=== PATIENT | female | born 1990 | race Caucasian/White ===

== ENCOUNTER 2020-07-03 19:21 | Emergency (ER) | payer OTHER ==
[2020-07-03] MEDS ORDERED: NORMAL SALINE 1000 ML 1,000 ML IV ONE (20:06)
[2020-07-03] MEDS ORDERED: KETOROLAC TROMETHAMINE INJ/PF 30 MG/1 ML SDV IV ONE (20:06)
--- NOTE | 2020-07-03 20:07 | ER Document Report ---
ED Medical Screen (RME) - General Chief Complaint: Flank Pain Stated Complaint: FLANK PAIN Time Seen by Provider: 07/03/20 20:00 Primary Care Provider: TRISTIN,EMPLOYEE [Primary Care Provider] - Follow up as needed - [facility] Notes: 07/03/20 20:13 30-year-old female to the emergency department with complaints of right upper quadrant abdominal pain with associated nausea that began several days ago and has gotten progressively worse. 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 She states that she does notice that her pain gets worse after she eats. She states that she is not had any fevers or chills. She is never had a gallbladder issue in the past. She states that she was seen in urgent care yesterday. She had negative test then. She states that she was told to follow-up outpatient with a GI specialist. She is recently moved to the area so she does not have a primary care established. She states that when she was feeling really badly today at work her boss requested that she come to the emergency department for further evaluation. On medical screening exam she does have right upper quadrant abdominal pain. I performed a brief medical screening exam on the patient determined that the patient needs further evaluation and management by main side provider. I have placed initial orders to help expedite care. - Related Data Allergies/Adverse Reactions: amoxicillin [Amoxicillin] Allergy (Verified 11/25/11 10:33) cefprozil [From Cefzil] Allergy (Verified 11/25/11 10:33) erythromycin base [Erythromycin Base] Allergy (Verified 11/25/11 10:33) Penicillins Allergy (Verified 11/25/11 10:33) Past Medical History Past Surgical History: Reports: Hx Orthopedic Surgery - ankle - Immunizations Hx Diphtheria, Pertussis, Tetanus Vaccination: Yes Physical Exam - Vital signs Vitals: Temp Pulse Resp BP Pulse Ox 97.9 F 78 16 134/69 H 100 07/03/20 19:30 07/03/20 19:30 07/03/20 19:30 07/03/20 19:30 07/03/20 19:30 Course - Vital Signs Vital signs: Temp Pulse Resp BP Pulse Ox 97.9 F 78 16 134/69 H 100 07/03/20 19:30 07/03/20 19:30 07/03/20 19:30 07/03/20 19:30 07/03/20 19:30 Doctor's Discharge - Discharge Referrals: HEALTH,EMPLOYEE [Primary Care Provider] - Follow up as needed
[2020-07-03] MEDS ORDERED: ONDANSETRON HCL INJ/PF 4 MG/2 ML SDV IV ONE (20:10)
--- NOTE | 2020-07-03 20:29 | ER Document Report ---
ED GI/ - General Chief Complaint: Flank Pain Stated Complaint: FLANK PAIN Time Seen by Provider: 07/03/20 20:00 Primary Care Provider: TRISTINEMPLOYEE [ACTIVE STAFF] - Follow up as needed Mode of Arrival: Ambulatory Information source: Patient Notes: ED Medical Screen ([facility] notes) - General Chief Complaint: Flank Pain Stated Complaint: FLANK PAIN Time Seen by Provider: 07/03/20 20:00 Primary Care Provider: HEALTHEMPLOYEE [Primary Care Provider] - Follow up as needed - HPI Notes: 07/03/20 20:13 30-year-old female to the emergency department with complaints of right upper quadrant abdominal pain with associated nausea that began several days ago and has gotten progressively worse. 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 She states that she does notice that her pain gets worse after she eats. She states that she is not had any fevers or chills. She is never had a gallbladder issue in the past. She states that she was seen in urgent care yesterday. She had negative test then. She states that she was told to follow-up outpatient with a GI specialist. She is recently moved to the area so she does not have a primary care established. She states that when she was feeling really badly today at work her boss requested that she come to the emergency department for further evaluation. On medical screening exam she does have right upper quadrant abdominal pain. I performed a brief medical screening exam on the patient determined that the patient needs further evaluation and man agement by main side provider. I have placed initial orders to help expedite care. 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 Patient had diarrhea x2 around 1011 100 after eating some eggs and sausage. Patient has no prior history of abdominal pain or back pain and has a grandmother who had gallbladder out at age 50 but of CHF and diabetes. Patient reports she herself has had gestational diabetes and has 2 healthy children ; 8-year-old and 4-year-old at home. Tonight patient has had poor appetite since Thursday and no bowel movement since she had her diarrhea on Thursday. Patient has nausea but no vomiting. Armond lott reports her abdominal pain is 5 out of 10 but increases on contraction at 7 out of 10. Both she and her good friend Sophie wells RN who works in the ER (met each other when their 's work on [employer] units in the [id number]). Patient has a questionable history of IBS with on and off diarrhea and constipation TRAVEL OUTSIDE OF THE [place] IN LAST 30 DAYS: No - HPI Patient complains to provider of: Abdominal pain Timing/Duration: Sudden, Persistent, Worse Quality of pain: Achy Severity at maximum: Moderate Severity in ED: Moderate Pain Level: 2 Context: Bad food - Related Data Allergies/Adverse Reactions: amoxicillin [Amoxicillin] Allergy (Verified 11/25/11 10:33) cefprozil [From Cefzil] Allergy (Verified 11/25/11 10:33) erythromycin base [Erythromycin Base] Allergy (Verified 11/25/11 10:33) Penicillins Allergy (Verified 11/25/11 10:33) Past Medical History - General Information source: Patient - Social History Smoking Status: Never Smoker Cigarette use (# per day): No Chew tobacco use (# tins/day): No Smoking Education Provided: No Frequency of alcohol use: None Drug Abuse: None Lives with: Family Family History: Reviewed & Not Pertinent Patient has suicidal ideation: No Patient has homicidal ideation: No Past Surgical History: Reports: Hx Orthopedic Surgery - ankle - Immunizations Hx Diphtheria, Pertussis, Tetanus Vaccination: Yes Review of Systems - Review of Systems Constitutional: See HPI, Recent illness EENT: No symptoms reported Cardiovascular: No symptoms reported Respiratory: No symptoms reported Gastrointestinal: See HPI, Abdominal pain, Diarrhea Genitourinary: No symptoms reported Female Genitourinary: No symptoms reported Musculoskeletal: No symptoms reported Skin: No symptoms reported Hematologic/Lymphatic: No symptoms reported Neurological/Psychological: See HPI, Weakness Physical Exam - Vital signs Vitals: Temp Pulse Resp BP Pulse Ox 97.9 F 78 16 134/69 H 100 07/03/20 19:30 07/03/20 19:30 07/03/20 19:30 07/03/20 19:30 07/03/20 19:30 Interpretation: Normal - General General appearance: Appears well, Alert - HEENT Head: Normocephalic, Atraumatic Eyes: Normal Pupils: PERRL - Respiratory Respiratory status: No respiratory distress Chest status: Nontender Breath sounds: Normal Chest palpation: Normal - Cardiovascular Rhythm: Regular Heart sounds: Normal auscultation Murmur: No - Abdominal Inspection: Obese Distension: No distension Bowel sounds: Normal Tenderness: Tender, McBurney's point Organomegaly: No organomegaly - Rectal Hemorrhoids: Other - deferred - Genitourinary Bimanuel exam: Other - deferred - Back Back: Normal, Nontender - Extremities General upper extremity: Normal inspection, Nontender, Normal color, Normal ROM, Normal temperature General lower extremity: Normal inspection, Nontender, Normal color, Normal ROM, Normal temperature, Normal weight bearing. No: Presley's sign - Neurological Neuro grossly intact: Yes Cognition: Normal Orientation: AAOx4 Chantal Coma Scale Eye Opening: Spontaneous Chantal Coma Scale Verbal: Oriented Chantal Coma Scale Motor: Obeys Commands Chantal Coma Scale Total: 15 Speech: Normal Motor strength normal: LUE, RUE, LLE, RLE Sensory: Normal - Psychological Associated symptoms: Normal affect, Normal mood - Skin Skin Temperature: Warm Skin Moisture: Dry Skin Color: Normal Course - Vital Signs Vital signs: Temp Pulse Resp BP Pulse Ox 97.9 F 78 16 134/69 H 100 07/03/20 21:15 07/03/20 19:30 07/03/20 19:30 07/03/20 19:30 07/03/20 19:30 - Laboratory Result Diagrams: 07/03/20 21:00 07/03/20 21:00 Laboratory results interpreted by me: 07/03/20 07/03/20 07/03/20 21:00 21:00 21:00 Hct 35.7 L Sodium 134.7 L Urine Blood SMALL H Leukocyte Esterase Rfl TRACE H - Diagnostic Test Radiology reviewed: Reports reviewed - U/S WNL ; CT ab pel negative per radiologist except for some free fluid physiological suspected Critical Care Note - Critical Care Note Comments: I informed patient of her negative ultrasound negative CT scan and advised her to follow-up with manager of planning. Off work as directed. Discharge - Discharge Clinical Impression: Abdominal pain Qualifiers: Abdominal location: right upper quadrant Qualified Code(s): R10.11 - Right upper quadrant pain IBS (irritable bowel syndrome) Qualifiers: Irritable bowel syndrome type: with diarrhea Qualified Code(s): K58.0 - Irritable bowel syndrome with diarrhea Condition: Stable Disposition: HOME, SELF-CARE Additional Instructions: Follow-up with manager of planning of choice; Dr. Lehman is on tonight; may follow-up with him if symptoms persist or worsen. Off work as directed encourage fluids take medications as directed. Prescriptions: Dicyclomine HCl [Bentyl 20 mg Tablet] 20 mg PO TID #20 tablet Forms: Return to Work Referrals: HEALTH,EMPLOYEE [ACTIVE STAFF] - Follow up as needed
--- NOTE | 2020-07-03 21:11 | RADIOLOGY REPORT (SQ) ---
EXAM DESCRIPTION: US ABDOMEN LIMITED COMPLETED DATE/TME: 07/03/2020 20:03 CLINICAL HISTORY: 30 years, Female, RUQ abd pain, eval GB COMPARISON: None. TECHNIQUE: Axial 2-D grayscale images of the abdomen were acquired. Doppler was utilized. LIMITATIONS: None. FINDINGS: Visualized portions of the abdominal aorta and IVC appear normal. Visualized portions of the pancreatic parenchyma appear normal in echogenicity. The liver is normal in echogenicity. Antegrade flow is documented within the main portal vein. Liver length is 19.7 cm. Right kidney measures 11.6 x 3.9 x 4.5 cm in size. No hydronephrosis. Gallbladder wall thickness measures 1 to 2 mm. No gallstones. Common bile duct diameter measures 4 mm. Sonographic Patel sign was negative. No significant free fluid is identified within the imaged upper abdomen. IMPRESSION: No acute sonographic abnormality. copyright 2010 [employer]- All Rights Reserved
[2020-07-03 21:26] LABS: ABSOLUTE EOSINOPHILS # (AUTO) 0.1 10^3/uL (0.0-0.6); ABSOLUTE LYMPHOCYTES (AUTO) 2.3 10^3/uL (0.5-4.7); ABSOLUTE MONOCYTES (AUTO) 0.3 10^3/uL (0.1-1.4); ABSOLUTE NEUT (AUTO) 4.2 10^3/uL (1.7-8.2); BASOPHILS % (AUTO) 0.3 % (0-2); EOSINOPHILS % (AUTO) 0.8 % (0-6); HEMATOCRIT 35.7 % (36.0-47.0); HEMOGLOBIN 12.3 g/dL (12.0-15.5); LYMPHOCYTES % (AUTO) 33.3 % (13-45); MEAN CORPUSCULAR HEMOGLOBIN 29.3 pg (27.0-33.4); MEAN CORPUSCULAR HGB CONC 34.5 g/dL (32.0-36.0); MEAN CORPUSCULAR VOLUME 85 fl (80-97); MONOCYTES % (AUTO) 4.3 % (3-13); PLATELET COUNT 239 10^3/uL (150-450); SEGMENTED NEUTROPHILS % (AUTO) 61.3 % (42-78); TOTAL CELLS COUNTED % (AUTO) 100 %; WHITE BLOOD COUNT 6.9 10^3/uL (4.0-10.5)
[2020-07-03 21:38] LABS: APPEARANCE,URINE SLIGHTLY-CLOUDY; BILIRUBIN,URINE NEGATIVE (NEGATIVE); COLOR,URINE STRAW; GLUCOSE, URINE NEGATIVE (NEGATIVE); KETONES,URINE NEGATIVE (NEGATIVE); PROTEIN,URINE NEGATIVE (NEGATIVE); URINE SPECIFIC GRAVITY 1.004; UROBILINOGEN,URINE NEGATIVE mg/dL (<2.0)
[2020-07-03 21:44] LABS: ALBUMIN 4.1 g/dL (3.5-5.0); ALKALINE PHOSPHATASE 90 U/L (38-126); ANION GAP 9 (5-19); ASPARTATE AMINO TRANSFERASE 19 U/L (14-36); BILIRUBIN,DIRECT 0.3 mg/dL (0.0-0.4); BILIRUBIN,TOTAL 0.6 mg/dL (0.2-1.3); BLOOD UREA NITROGEN 8 mg/dL (7-20); CALCIUM 9.4 mg/dL (8.4-10.2); CARBON DIOXIDE 25 mmol/L (22-30); CHLORIDE 101 mmol/L (98-107); GLUCOSE 84 mg/dL (75-110); POTASSIUM 4.1 mmol/L (3.6-5.0); TOTAL PROTEIN 7.2 g/dL (6.3-8.2)
[2020-07-04] MEDS ORDERED: HYDROMORPHONE HCL INJ/PF 2 MG/ML AMPULE IV ONE (00:15)
[2020-07-04] MEDS ORDERED: PROMETHAZINE HCL INJ 25 MG/1 ML VIAL IV ONE (00:16)
--- NOTE | 2020-07-04 00:32 | RADIOLOGY REPORT (SQ) ---
EXAM DESCRIPTION: CT ABDOMEN PELVIS WITH IV CONTRAST COMPLETED DATE/TME: 07/03/2020 00:00 CLINICAL INDICATION: 30-year-old female with diffuse abdominal pain. COMPARISON: None. EXAMINATION: CT of the abdomen and pelvis was performed following intravenous administration of contrast. Oral contrast was administered. Multiplanar reformatted images were provided. This exam was performed according to our departmental dose optimization program which includes use of automated exposure control, adjustment of the mA and/or kV according to patient size and/or use of iterative reconstruction technique. FINDINGS: Chest: Evaluation through the lung bases reveals no focal opacity, pleural effusion or pneumothorax. Heart size is within normal limits. No pericardial effusion. Abdomen and pelvis: The liver, gallbladder, pancreas, spleen, bilateral kidneys and bilateral adrenal glands are within normal limits. The vessels are patent and normal in caliber. No abdominopelvic lymph nodes are noted to be pathologically enlarged by CT measurement criteria. The bowel is within normal limits without abnormal bowel wall thickness or bowel dilation. No free air. No free abdominopelvic fluid collections. The appendix is within normal limits. The uterus and adnexa are within normal limits of a contrast-enhanced CT examination. Free fluid present within the dependent pelvis, a nonspecific finding which may be physiologic in a patient this age. The osseous structures are within normal limits. IMPRESSION: 1. No specific acute intra-abdominal findings are noted to suggest etiology of the patient's abdominal pain. 2. Free fluid present within the dependent pelvis, a nonspecific finding which may be physiologic in a patient this age.
[2020-07-04] MEDS ORDERED: HYDROCODONE/ACETAMINOPHEN 5-325 MG (6 TAB/ER DISP) PO PRN (01:00)
[2020-07-04] MEDS ORDERED: ONDANSETRON ODT 4 MG TAB (6 TAB/ER DISP) PO PRN (01:00)
[2020-07-04 01:15] VITALS: BP 129/66
== END 2020-07-04 01:23 | disposition home or self-care (01) ==
LOC: ER 19:21
DX: R10.11 Right upper quadrant pain (principal); K58.0 Irritable bowel syndrome with diarrhea; R11.0 Nausea; E66.9 Obesity, unspecified; Z88.0 Allergy status to penicillin; Z88.3 Allergy status to other anti-infective agents
CPT/HCPCS: 99285; 96361; 96374; 96375; 36415; 87086; 83690; 85025; 80053; 81001; 76705; 74177; J1885; J1170; J2550; J2405; J7030